=== PATIENT | male | born 1995 | race Caucasian/White ===

== ENCOUNTER 2019-10-20 16:30 | Emergency (ER) | payer OTHER ==
[~2019-10-20] VITALS: Ht 177.8 cm; Wt 63.5 kg
[2019-10-20 17:30] LABS: CALCIUM 10.5 mg/dL (8.5-10.1); CREATININE 1.5 mg/dL (0.6-1.3); HEMATOCRIT 46.4 % (42.0-52.0); HEMOGLOBIN 16.6 gm/dL (14.0-18.0); MCH 30.8 pg (26.0-34.0); MCHC 35.9 g/dL (28.0-37.0); MCV 85.9 fL (80.0-100.0); MPV 9.1 fl. (7.2-11.1); NUCLEATED RBCS 0 /100WBC; PLATELET COUNT* 230 thou/uL (150-400); POTASSIUM 3.3 mmol/L (3.5-5.1); RDW-CV 12.9 % (10.5-14.5); WBC 15.7 thou/uL (4.0-11.0)
[2019-10-20 17:35] LABS: ALBUMIN 5.6 g/dL (3.4-5.0); TOTAL PROTEIN 8.6 g/dL (6.4-8.2)
[2019-10-20 18:25] LABS: ABSOLUTE LYMPHOCYTES 0.9 thou/uL (0.8-5.3); ABSOLUTE MONOCYTES 0.9 thou/uL (0.0-1.2); ABSOLUTE NEUTROPHILS 13.8 thou/uL (1.6-8.1)
[2019-10-20 18:26] LABS: LARGE PLATELETS RARE; PLATELET ESTIMATE ADEQUATE
[2019-10-20 19:32] VITALS: BP 106/61
--- NOTE | 2019-10-21 09:40 | EKG ---
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
== END 2019-10-20 19:32 | disposition still patient (30) ==
LOC: M.ERS 16:30
PROVIDERS: Emergency Medicine Emergency Medical Services
DX: T67.5XXA Heat exhaustion, unspecified, initial encounter (principal); R11.2 Nausea with vomiting, unspecified; X32.XXXA Exposure to sunlight, initial encounter; Y93.89 Activity, other specified; Y92.89 Other specified places as the place of occurrence of the external cause; Y99.8 Other external cause status